=== PATIENT | female | born 1940 | race Caucasian/White ===

== ENCOUNTER 2016-07-17 14:00 | Outpatient (RCR) | payer MEDICARE, BC | END 2016-08-08 12:30 | disposition home or self-care (01) | LOC: PT 14:00 | DX: R27.0 Ataxia, unspecified (principal); R53.1 Weakness ==

== ENCOUNTER → 2016-12-11 | Outpatient (CLI) | payer MEDICARE, BC | LOC: LAB 16:05 | DX: I10 Essential (primary) hypertension (principal) ==

== ENCOUNTER → 2016-12-12 | Outpatient (CLI) | payer MEDICARE, BC | LOC: RAD 07:52 | DX: R10.31 Right lower quadrant pain (principal) ==

== ENCOUNTER 2017-01-25 13:30 | Outpatient (RCR) | payer MEDICARE, BC | END 2017-01-25 14:00 | disposition home or self-care (01) | LOC: PT 13:30 | DX: M77.12 Lateral epicondylitis, left elbow (principal) ==

== ENCOUNTER → 2017-02-06 | Outpatient (CLI) | payer MEDICARE, BC | LOC: LAB 10:20 | DX: M25.522 Pain in left elbow (principal); M19.022 Primary osteoarthritis, left elbow ==

== ENCOUNTER 2017-05-17 14:30 | Outpatient (RCR) | payer MEDICARE, BC | END 2017-05-17 15:00 | disposition home or self-care (01) | LOC: PT 14:30 | DX: M77.12 Lateral epicondylitis, left elbow (principal) | CPT/HCPCS: G8985-GP ==

== ENCOUNTER → 2017-05-27 | Outpatient (CLI) | payer MEDICARE, BC ==
[2017-05-27 08:56] LABS: EOS # 0.1 (0.04-0.40); EOS % 1.1 % (1.0-5.0); HEMATOCRIT 40.1 % (37.0-47.0); HEMOGLOBIN 12.9 g/dL (12.5-16.0); LYMPH# 2.2 (1.50-4.00); MEAN CELL VOLUME 92 fl (78-100); MEAN CORPUSCULAR HEMOGLOBIN 30 pg (27-31); MEAN CORPUSCULAR HGB CONC 32 g/dL (33-37); MEAN PLATELET VOLUME 9.4 fl (7.4-10.4); MONO # 0.6 (0.20-0.80); NEU # 4.1 (1.40-6.50); PLATELET COUNT 219 K/mm3 (130-400); RED BLOOD COUNT 4.38 M/mm3 (4.10-5.30); RED CELL DISTRIBUTION WIDTH 13.9 % (11.5-14.5); WHITE BLOOD COUNT 7.1 K/mm3 (4.8-10.8)
[2017-05-27 09:18] LABS: ALBUMIN 3.8 g/dL (3.5-5.0); BUN/CREATININE RATIO 21.1 (6.0-26.0); CALCIUM 10.3 mg/dL (8.4-10.2); POTASSIUM 4.9 mmol/L (3.6-5.0); TOTAL BILIRUBIN 0.5 mg/dL (0.2-1.3); TOTAL PROTEIN 6.9 g/dL (6.3-8.2)
[2017-05-27 09:58] LABS: ERYTHROCYTE SEDIMENTATION RATE 28 mm/hr (0-30)
[2017-05-27 22:20] LABS: C-REACTIVE PROTEIN XXX
== END ==
LOC: LAB 08:43
PROVIDERS: Internal Medicine
DX: I10 Essential (primary) hypertension (principal); M85.80 Other specified disorders of bone density and structure, unspecified site; R42 Dizziness and giddiness; R20.2 Paresthesia of skin; E78.2 Mixed hyperlipidemia; M17.9 Osteoarthritis of knee, unspecified

== ENCOUNTER → 2017-06-10 | Outpatient (CLI) | payer MEDICARE, BC | LOC: RAD 11:24 | DX: M25.552 Pain in left hip (principal) ==

== ENCOUNTER → 2017-08-13 | Outpatient (CLI) | payer MEDICARE, BC | LOC: RAD 14:58 | DX: J01.01 Acute recurrent maxillary sinusitis (principal); J20.9 Acute bronchitis, unspecified ==

== ENCOUNTER → 2017-09-24 | Outpatient (CLI) | payer MEDICARE, BC | LOC: LAB 15:35 | PROVIDERS: Internal Medicine | DX: I10 Essential (primary) hypertension (principal); K90.9 Intestinal malabsorption, unspecified; R74.8 Abnormal levels of other serum enzymes ==

== ENCOUNTER → 2017-10-23 | Outpatient (CLI) | payer MEDICARE, BC ==
[2017-10-23 11:30] LABS: ALBUMIN 4.1 g/dL (3.5-5.0); DIRECT BILIRUBIN 0.2 mg/dL (0.0-0.4); TOTAL BILIRUBIN 0.4 mg/dL (0.2-1.3); TOTAL PROTEIN 7.4 g/dL (6.3-8.2)
== END ==
LOC: LAB 10:56
PROVIDERS: Internal Medicine
DX: C50.112 Malignant neoplasm of central portion of left female breast (principal); R74.8 Abnormal levels of other serum enzymes; Z88.6 Allergy status to analgesic agent; Z88.1 Allergy status to other antibiotic agents; Z88.2 Allergy status to sulfonamides; Z88.8 Allergy status to other drugs, medicaments and biological substances

== ENCOUNTER → 2017-11-22 | Outpatient (CLI) | payer MEDICARE, BC ==
[2017-11-22 11:56] LABS: EOS # 0.2 (0.04-0.40); EOS % 1.6 % (1.0-5.0); HEMATOCRIT 42.1 % (37.0-47.0); HEMOGLOBIN 13.6 g/dL (12.5-16.0); LYMPH# 1.8 (1.50-4.00); MEAN CELL VOLUME 91 fl (78-100); MEAN CORPUSCULAR HEMOGLOBIN 29 pg (27-31); MEAN CORPUSCULAR HGB CONC 32 g/dL (33-37); MEAN PLATELET VOLUME 9.6 fl (7.4-10.4); MONO # 0.9 (0.20-0.80); NEU # 6.6 (1.40-6.50); PLATELET COUNT 200 K/mm3 (130-400); RED BLOOD COUNT 4.63 M/mm3 (4.10-5.30); RED CELL DISTRIBUTION WIDTH 14.3 % (11.5-14.5); WHITE BLOOD COUNT 9.5 K/mm3 (4.8-10.8)
[2017-11-22 12:05] LABS: ALBUMIN 4.3 g/dL (3.5-5.0); POTASSIUM 4.8 mmol/L (3.6-5.0); TOTAL BILIRUBIN 0.4 mg/dL (0.2-1.3); TOTAL PROTEIN 7.9 g/dL (6.3-8.2)
[2017-11-22 12:58] LABS: ERYTHROCYTE SEDIMENTATION RATE 32 mm/hr (0-30)
== END ==
LOC: LAB 11:37
PROVIDERS: Internal Medicine
DX: K44.9 Diaphragmatic hernia without obstruction or gangrene (principal); I10 Essential (primary) hypertension; E78.00 Pure hypercholesterolemia, unspecified; M85.80 Other specified disorders of bone density and structure, unspecified site
CPT/HCPCS: Q9967

== ENCOUNTER → 2017-12-17 | Outpatient (CLI) | payer MEDICARE, BC ==
[2017-12-17 16:25] LABS: ALBUMIN 3.7 g/dL (3.5-5.0); DIRECT BILIRUBIN 0.1 mg/dL (0.0-0.4); TOTAL BILIRUBIN 0.2 mg/dL (0.2-1.3); TOTAL PROTEIN 6.8 g/dL (6.3-8.2)
== END ==
LOC: LAB 15:46
PROVIDERS: Internal Medicine
DX: R74.8 Abnormal levels of other serum enzymes (principal)

== ENCOUNTER 2018-02-17 13:00 | Outpatient (RCR) | payer MEDICARE, BC | END 2018-03-25 | disposition home or self-care (01) | LOC: PT | DX: S39.012D Strain of muscle, fascia and tendon of lower back, subsequent encounter (principal); M54.6 Pain in thoracic spine; R07.89 Other chest pain; M25.552 Pain in left hip; M25.551 Pain in right hip | CPT/HCPCS: G8978-GP; G8979-GP ==

== ENCOUNTER → 2018-03-11 | Outpatient (CLI) | payer MEDICARE, BC ==
[2018-03-11 10:05] LABS: URINE WBC 0 /hpf (0-3)
[2018-03-11 10:22] LABS: URINE APPEARANCE CLEAR; URINE BILIRUBIN NEGATIVE (NEGATIVE); URINE BLOOD NEGATIVE (NEGATIVE); URINE COLOR YELLOW; URINE GLUCOSE NEGATIVE (NEGATIVE); URINE KETONE NEGATIVE (NEGATIVE); URINE LEUKOCYTE ESTERASE NEGATIVE (NEGATIVE); URINE MUCUS PRESENT (NOT PRESENT); URINE NITRATE NEGATIVE (NEGATIVE); URINE PROTEIN(semi-quant) TRACE mg/dL (NEGATIVE); URINE UROBILINOGEN NORMAL (NORMAL)
== END ==
LOC: LAB 09:54
PROVIDERS: Physician Assistant
DX: N39.0 Urinary tract infection, site not specified (principal); R30.0 Dysuria; R10.2 Pelvic and perineal pain

== ENCOUNTER → 2018-06-10 | Outpatient (CLI) | payer MEDICARE, BC ==
[2018-06-10 11:18] LABS: EOS # 0.1 (0.04-0.40); EOS % 0.7 % (1.0-5.0); HEMATOCRIT 40.6 % (37.0-47.0); HEMOGLOBIN 13.2 g/dL (12.5-16.0); LYMPH# 1.9 (1.50-4.00); MEAN CELL VOLUME 92 fl (78-100); MEAN CORPUSCULAR HEMOGLOBIN 30 pg (27-31); MEAN CORPUSCULAR HGB CONC 33 g/dL (33-37); MEAN PLATELET VOLUME 9.5 fl (7.4-10.4); MONO # 0.6 (0.20-0.80); NEU # 4.3 (1.40-6.50); PLATELET COUNT 211 K/mm3 (130-400); RED BLOOD COUNT 4.42 M/mm3 (4.10-5.30); RED CELL DISTRIBUTION WIDTH 13.5 % (11.5-14.5)
[2018-06-10 11:57] LABS: ALBUMIN 4.2 g/dL (3.5-5.0); CALCIUM 10.7 mg/dL (8.4-10.2); POTASSIUM 5.2 mmol/L (3.6-5.0); TOTAL BILIRUBIN 0.5 mg/dL (0.2-1.3); TOTAL PROTEIN 6.7 g/dL (6.3-8.2)
[2018-06-10 12:33] LABS: ERYTHROCYTE SEDIMENTATION RATE 10 mm/hr (0-30)
[2018-06-10 20:52] LABS: C-REACTIVE PROTEIN XXX
== END ==
LOC: LAB 10:57
PROVIDERS: Internal Medicine
DX: I10 Essential (primary) hypertension (principal); K90.9 Intestinal malabsorption, unspecified; E78.00 Pure hypercholesterolemia, unspecified; M85.80 Other specified disorders of bone density and structure, unspecified site; M19.90 Unspecified osteoarthritis, unspecified site

== ENCOUNTER → 2018-06-17 | Outpatient (CLI) | payer MEDICARE, BC ==
[2018-06-17 13:39] LABS: EOS # 0.1 (0.04-0.40); EOS % 0.6 % (1.0-5.0); HEMATOCRIT 41.6 % (37.0-47.0); HEMOGLOBIN 13.7 g/dL (12.5-16.0); LYMPH# 2.4 (1.50-4.00); MEAN CELL VOLUME 91 fl (78-100); MEAN CORPUSCULAR HEMOGLOBIN 30 pg (27-31); MEAN CORPUSCULAR HGB CONC 33 g/dL (33-37); MEAN PLATELET VOLUME 10.3 fl (7.4-10.4); MONO # 0.8 (0.20-0.80); PLATELET COUNT 230 K/mm3 (130-400); RED BLOOD COUNT 4.57 M/mm3 (4.10-5.30); RED CELL DISTRIBUTION WIDTH 13.4 % (11.5-14.5); WHITE BLOOD COUNT 8.3 K/mm3 (4.8-10.8)
[2018-06-17 14:10] LABS: ERYTHROCYTE SEDIMENTATION RATE 18 mm/hr (0-30)
== END ==
LOC: RAD 12:00
PROVIDERS: Nurse Practitioner Family
DX: I63.9 Cerebral infarction, unspecified (principal)

== ENCOUNTER → 2018-06-24 | Outpatient (CLI) | payer MEDICARE, BC | LOC: CARDREHAB 15:35 | DX: G47.33 Obstructive sleep apnea (adult) (pediatric) (principal); R06.83 Snoring; G47.34 Idiopathic sleep related nonobstructive alveolar hypoventilation; E66.9 Obesity, unspecified; Z68.38 Body mass index [BMI] 38.0-38.9, adult; G47.10 Hypersomnia, unspecified; G47.8 Other sleep disorders; R51 Headache | CPT/HCPCS: G0399 ==

== ENCOUNTER → 2019-02-09 | Outpatient (CLI) | payer MEDICARE, BC | LOC: RAD 14:05 | DX: M51.36 Other intervertebral disc degeneration, lumbar region (principal) ==

== ENCOUNTER → 2019-03-11 | Outpatient (CLI) | payer MEDICARE, BC | LOC: PT 09:56 | DX: M17.11 Unilateral primary osteoarthritis, right knee (principal); Z96.651 Presence of right artificial knee joint ==

== ENCOUNTER → 2019-05-11 | Outpatient (CLI) | payer MEDICARE, BC ==
[2019-04-06 11:30] VITALS: BP 146/70
[~2019-05-11] MED LIST: ASPIRIN E.C. 8181 MG; BYSTOLIC5 MG PO; CALCIUM CITRATE1 TA4 PO; CHOLESTYRAMINE P4 GM PO; CLARITIN 1010 MG/TAB PO; COLESTID5 GM/PACKE PO; FISH OIL1 IU PO; MULTIPLE VITAMI1 TA1 PO; PANTOPRAZOLE SO40 MG PO; VITAMIN D32000 UNI1 PO
== END ==
LOC: RAD 11:00
DX: I65.23 Occlusion and stenosis of bilateral carotid arteries (principal)

== ENCOUNTER → 2019-05-27 | Outpatient (CLI) | payer MEDICARE, BC ==
[2019-04-06 11:30] VITALS: BP 146/70
[2019-05-27 11:14] LABS: EOS # 0.1 (0.04-0.40); EOS % 1.7 % (1.0-5.0); HEMATOCRIT 40.3 % (37.0-47.0); HEMOGLOBIN 12.4 g/dL (12.5-16.0); LYMPH# 1.2 (1.50-4.00); MEAN CELL VOLUME 95 fl (78-100); MEAN CORPUSCULAR HEMOGLOBIN 29 pg (27-31); MEAN CORPUSCULAR HGB CONC 31 g/dL (33-37); MONO # 0.7 (0.20-0.80); NEU # 4.1 (1.40-6.50); PLATELET COUNT 240 K/mm3 (130-400); RED BLOOD COUNT 4.26 M/mm3 (4.10-5.30); RED CELL DISTRIBUTION WIDTH 14.1 % (11.5-14.5)
[2019-05-27 11:25] LABS: ALBUMIN 3.9 g/dL (3.4-4.8)
[2019-05-27 11:26] LABS: CALCIUM 10.1 mg/dL (8.3-10.5)
[2019-05-27 11:30] LABS: TOTAL BILIRUBIN 0.3 mg/dL (0.2-1.2)
[2019-05-27 11:35] LABS: MAGNESIUM 2.21 mg/dL (1.60-2.60)
== END ==
LOC: LAB 11:00
PROVIDERS: Internal Medicine
DX: Z01.818 Encounter for other preprocedural examination (principal); I10 Essential (primary) hypertension; M85.80 Other specified disorders of bone density and structure, unspecified site; M17.0 Bilateral primary osteoarthritis of knee; E78.00 Pure hypercholesterolemia, unspecified

== ENCOUNTER → 2019-06-26 | Outpatient (CLI) | payer MEDICARE, BC ==
[2019-04-06 11:30] VITALS: BP 146/70
[2019-06-26 11:27] LABS: ALBUMIN 4.2 g/dL (3.4-4.8); POTASSIUM 4.9 mmol/L (3.5-5.1)
[2019-06-26 11:28] LABS: CALCIUM 10.3 mg/dL (8.3-10.5)
[2019-06-26 11:30] LABS: TOTAL PROTEIN 7.2 g/dL (6.2-8.1)
[2019-06-26 11:31] LABS: TOTAL BILIRUBIN 0.3 mg/dL (0.2-1.2)
== END ==
LOC: LAB 11:04
PROVIDERS: Internal Medicine
DX: I10 Essential (primary) hypertension (principal); E78.00 Pure hypercholesterolemia, unspecified; M85.80 Other specified disorders of bone density and structure, unspecified site

== ENCOUNTER 2019-07-01 10:00 | Outpatient (RCR) | payer MEDICARE, BC ==
[2019-04-06 11:30] VITALS: BP 146/70
== END 2019-07-01 10:45 | disposition still patient (30) ==
LOC: PT 10:00
DX: M17.11 Unilateral primary osteoarthritis, right knee (principal); Z96.651 Presence of right artificial knee joint

== ENCOUNTER → 2019-10-21 | Outpatient (CLI) | payer MEDICARE, BC ==
[2019-04-06 11:30] VITALS: BP 146/70
[2019-10-21 11:13] LABS: URINE APPEARANCE CLEAR; URINE BILIRUBIN NEGATIVE (NEGATIVE); URINE BLOOD TRACE (NEGATIVE); URINE COLOR YELLOW; URINE GLUCOSE NEGATIVE (NEGATIVE); URINE KETONE NEGATIVE (NEGATIVE); URINE LEUKOCYTE ESTERASE TRACE (NEGATIVE); URINE NITRATE NEGATIVE (NEGATIVE); URINE PROTEIN(semi-quant) TRACE mg/dL (NEGATIVE); URINE UROBILINOGEN NORMAL (NORMAL)
[2019-10-21 11:14] LABS: URINE MUCUS PRESENT (NOT PRESENT); URINE WBC 0-1 /hpf (0-3)
== END ==
LOC: LAB 10:21
PROVIDERS: Internal Medicine
DX: N39.0 Urinary tract infection, site not specified (principal); R10.2 Pelvic and perineal pain

== ENCOUNTER → 2019-11-27 | Outpatient (CLI) | payer MEDICARE, BC ==
[2019-04-06 11:30] VITALS: BP 146/70
[2019-11-27 10:58] LABS: EOS # 0.1 (0.04-0.40); EOS % 1.6 % (1.0-5.0); HEMATOCRIT 41.1 % (37.0-47.0); HEMOGLOBIN 12.4 g/dL (12.5-16.0); LYMPH# 1.9 (1.50-4.00); MEAN CELL VOLUME 91 fl (78-100); MEAN CORPUSCULAR HEMOGLOBIN 28 pg (27-31); MEAN CORPUSCULAR HGB CONC 30 g/dL (33-37); MEAN PLATELET VOLUME 9.6 fl (7.4-10.4); MONO # 0.7 (0.20-0.80); NEU # 4.2 (1.40-6.50); PLATELET COUNT 219 K/mm3 (130-400); RED BLOOD COUNT 4.51 M/mm3 (4.10-5.30); RED CELL DISTRIBUTION WIDTH 15.6 % (11.5-14.5); WHITE BLOOD COUNT 6.9 K/mm3 (4.8-10.8)
[2019-11-27 11:20] LABS: ALBUMIN 4.2 g/dL (3.4-4.8)
[2019-11-27 11:22] LABS: CALCIUM 9.5 mg/dL (8.3-10.5)
[2019-11-27 11:23] LABS: TOTAL PROTEIN 6.9 g/dL (6.2-8.1)
[2019-11-27 11:25] LABS: TOTAL BILIRUBIN 0.3 mg/dL (0.2-1.2)
[2019-11-27 12:25] LABS: ERYTHROCYTE SEDIMENTATION RATE 20 mm/hr (0-30)
[2019-11-27 12:27] LABS: URINE APPEARANCE CLEAR; URINE BILIRUBIN NEGATIVE (NEGATIVE); URINE BLOOD NEGATIVE (NEGATIVE); URINE COLOR YELLOW; URINE GLUCOSE NEGATIVE (NEGATIVE); URINE KETONE NEGATIVE (NEGATIVE); URINE LEUKOCYTE ESTERASE NEGATIVE (NEGATIVE); URINE NITRATE NEGATIVE (NEGATIVE); URINE PROTEIN(semi-quant) NEGATIVE (NEGATIVE); URINE UROBILINOGEN NORMAL (NORMAL); URINE WBC 0-1 /hpf (0-3)
== END ==
LOC: RAD 10:11
PROVIDERS: Internal Medicine
DX: Z13.6 Encounter for screening for cardiovascular disorders (principal); I48.0 Paroxysmal atrial fibrillation; I10 Essential (primary) hypertension; M17.0 Bilateral primary osteoarthritis of knee; R60.0 Localized edema; R31.9 Hematuria, unspecified

== ENCOUNTER → 2020-03-09 | Outpatient (CLI) | payer MEDICARE, BC ==
[2019-04-06 11:30] VITALS: BP 146/70
== END ==
LOC: LAB 08:53
DX: M85.80 Other specified disorders of bone density and structure, unspecified site (principal); E78.2 Mixed hyperlipidemia; R20.2 Paresthesia of skin

== ENCOUNTER 2020-05-26 13:37 | Outpatient (RCR) | payer MEDICARE, BC ==
[2019-04-06 11:30] VITALS: BP 146/70
== END 2020-05-26 14:00 | disposition home or self-care (01) ==
LOC: PT 13:37
DX: M25.512 Pain in left shoulder (principal)

== ENCOUNTER → 2020-06-03 | Outpatient (CLI) | payer MEDICARE, BC ==
[2019-04-06 11:30] VITALS: BP 146/70
[2020-06-03 11:52] LABS: EOS # 0.1 (0.04-0.40); EOS % 0.6 % (1.0-5.0); HEMATOCRIT 45.4 % (37.0-47.0); HEMOGLOBIN 14.5 g/dL (12.5-16.0); LYMPH# 1.9 (1.50-4.00); MEAN CELL VOLUME 90 fl (78-100); MEAN CORPUSCULAR HEMOGLOBIN 29 pg (27-31); MEAN CORPUSCULAR HGB CONC 32 g/dL (33-37); MEAN PLATELET VOLUME 9.1 fl (7.4-10.4); MONO # 0.7 (0.20-0.80); NEU # 5.8 (1.40-6.50); PLATELET COUNT 240 K/mm3 (130-400); RED BLOOD COUNT 5.06 M/mm3 (4.10-5.30); RED CELL DISTRIBUTION WIDTH 14.4 % (11.5-14.5); WHITE BLOOD COUNT 8.5 K/mm3 (4.8-10.8)
[2020-06-03 12:00] LABS: POTASSIUM 4.7 mmol/L (3.5-5.1); SODIUM 142 mmol/L (136-145)
[2020-06-03 12:01] LABS: ALBUMIN 4.3 g/dL (3.4-4.8); URINE APPEARANCE CLEAR; URINE BILIRUBIN NEGATIVE (NEGATIVE); URINE COLOR YELLOW; URINE GLUCOSE NEGATIVE (NEGATIVE); URINE KETONE NEGATIVE (NEGATIVE); URINE LEUKOCYTE ESTERASE NEGATIVE (NEGATIVE); URINE NITRATE NEGATIVE (NEGATIVE); URINE PROTEIN(semi-quant) TRACE mg/dL (NEGATIVE); URINE UROBILINOGEN NORMAL (NORMAL)
[2020-06-03 12:02] LABS: CALCIUM 9.9 mg/dL (8.3-10.5); URINE BLOOD NEGATIVE (NEGATIVE); URINE MUCUS PRESENT (NOT PRESENT)
[2020-06-03 12:03] LABS: GLUCOSE 99 mg/dL (65-105); TOTAL PROTEIN 7.8 g/dL (6.2-8.1)
[2020-06-03 12:04] LABS: CARBON DIOXIDE 27 mmol/L (23-31)
[2020-06-03 12:05] LABS: TOTAL BILIRUBIN 0.4 mg/dL (0.2-1.2)
[2020-06-03 12:09] LABS: AST-SGOT 18 U/L (5-34)
[2020-06-03 12:10] LABS: ALT/SGPT 34 U/L (0-55); MAGNESIUM 2.04 mg/dL (1.60-2.60)
== END ==
LOC: LAB 11:31
PROVIDERS: Internal Medicine
DX: E78.00 Pure hypercholesterolemia, unspecified (principal); I10 Essential (primary) hypertension; K90.9 Intestinal malabsorption, unspecified; I48.0 Paroxysmal atrial fibrillation

== ENCOUNTER 2020-11-20 23:59 | Emergency (ER) | payer MEDICARE, BC ==
[~2020-11-20 23:59] MED LIST changes: -ASPIRIN E.C. 8181 MG; +ASPIRIN E.C. 8181 MG PO; -VITAMIN D32000 UNI1 PO; +VITAMIN D3250 MC2 PO
[2020-11-21] MEDS ORDERED: PROBIOTIC1 EAC4 PO (00:52)
[2020-11-21] MEDS ORDERED: FEXOFENADINE H180 M1 PO (00:54)
[2020-11-21 00:55] LABS: EOS # 0.1 (0.04-0.40); EOS % 0.9 % (1.0-5.0); HEMOGLOBIN 13.3 g/dL (12.5-16.0); LYMPH# 2.8 (1.50-4.00); MEAN CELL VOLUME 89 fl (78-100); MEAN CORPUSCULAR HEMOGLOBIN 29 pg (27-31); MEAN CORPUSCULAR HGB CONC 32 g/dL (33-37); MEAN PLATELET VOLUME 10.2 fl (7.4-10.4); NEU # 8.7 (1.40-6.50); PLATELET COUNT 202 K/mm3 (130-400); RED BLOOD COUNT 4.61 M/mm3 (4.10-5.30); RED CELL DISTRIBUTION WIDTH 13.7 % (11.5-14.5); WHITE BLOOD COUNT 12.7 K/mm3 (4.8-10.8)
[2020-11-21] MEDS ORDERED: VITAMIN C500 M6 PO (00:55)
[2020-11-21] MEDS ORDERED: FLUTICASON0.05 MG/Ac NS (00:56)
[2020-11-21 01:03] LABS: ALBUMIN 4.1 g/dL (3.4-4.8)
[2020-11-21 01:04] LABS: POTASSIUM 4.3 mmol/L (3.5-5.1)
[2020-11-21 01:05] LABS: CALCIUM 9.3 mg/dL (8.3-10.5)
[2020-11-21 01:06] LABS: TOTAL PROTEIN 6.6 g/dL (6.2-8.1)
[2020-11-21 01:08] LABS: TOTAL BILIRUBIN 0.5 mg/dL (0.2-1.2)
[2020-11-21 01:44] LABS: URINE APPEARANCE CLEAR; URINE COLOR YELLOW
[2020-11-21 01:47] LABS: URINE BILIRUBIN NEGATIVE (NEGATIVE); URINE GLUCOSE NEGATIVE (NEGATIVE); URINE KETONE NEGATIVE (NEGATIVE); URINE NITRATE NEGATIVE (NEGATIVE); URINE PROTEIN(semi-quant) TRACE mg/dL (NEGATIVE); URINE UROBILINOGEN NORMAL (NORMAL)
[2020-11-21 01:48] LABS: URINE BLOOD TRACE (NEGATIVE); URINE LEUKOCYTE ESTERASE 1+ (NEGATIVE)
[2020-11-21 02:10] LABS: LIPASE 16301 U/L (8-78)
[2020-11-21 03:12] VITALS: BP 190/84
== END 2020-11-21 03:46 | disposition short-term general hospital (02) ==
LOC: ED 23:59
PROVIDERS: Family Medicine
DX: K85.90 Acute pancreatitis without necrosis or infection, unspecified (principal); I10 Essential (primary) hypertension; I48.91 Unspecified atrial fibrillation; K21.9 Gastro-esophageal reflux disease without esophagitis; K58.9 Irritable bowel syndrome, unspecified; Z90.49 Acquired absence of other specified parts of digestive tract; Z98.890 Other specified postprocedural states; Z79.82 Long term (current) use of aspirin; Z79.899 Other long term (current) drug therapy; Z79.51 Long term (current) use of inhaled steroids
CPT/HCPCS: C9113; J3010; J7030; Q9967

== ENCOUNTER → 2020-12-01 | Outpatient (CLI) | payer MEDICARE, BC ==
[2020-11-21 03:12] VITALS: BP 190/84
[~2020-12-01] MED LIST changes: +FEXOFENADINE H180 M1 PO; +FLUTICASON0.05 MG/Ac NS; +PROBIOTIC1 EAC4 PO; +VITAMIN C500 M6 PO
[2020-12-01 10:32] LABS: ALBUMIN 3.2 g/dL (3.4-4.8)
[2020-12-01 10:33] LABS: POTASSIUM 4.2 mmol/L (3.5-5.1)
[2020-12-01 10:34] LABS: CALCIUM 9.5 mg/dL (8.3-10.5)
[2020-12-01 10:35] LABS: TOTAL PROTEIN 6.5 g/dL (6.2-8.1)
[2020-12-01 10:37] LABS: BASO # 0.03 (0.02-0.10); EOS # 0.13 (0.04-0.40); EOS % 0.9 % (1.0-5.0); HEMATOCRIT 37.7 % (37.0-47.0); HEMOGLOBIN 11.9 g/dL (12.5-16.0); LYMPH# 2.43 (1.50-4.00); MEAN CELL VOLUME 90 fl (78-100); MEAN CORPUSCULAR HEMOGLOBIN 28 pg (27-31); MEAN CORPUSCULAR HGB CONC 32 g/dL (33-37); MEAN PLATELET VOLUME 9.3 fl (7.4-10.4); MONO # 0.97 (0.20-0.80); PLATELET COUNT 331 K/mm3 (130-400); RED BLOOD COUNT 4.21 M/mm3 (4.10-5.30); RED CELL DISTRIBUTION WIDTH 14.4 % (11.5-14.5); TOTAL BILIRUBIN 0.4 mg/dL (0.2-1.2)
== END ==
LOC: LAB 09:56
PROVIDERS: Physician Assistant
DX: D72.829 Elevated white blood cell count, unspecified (principal); R74.8 Abnormal levels of other serum enzymes

== ENCOUNTER → 2020-12-09 | Outpatient (CLI) | payer MEDICARE, BC ==
[2020-11-21 03:12] VITALS: BP 190/84
[2020-12-09 12:34] LABS: BASO # 0.04 (0.02-0.10); EOS # 0.07 (0.04-0.40); EOS % 0.9 % (1.0-5.0); HEMOGLOBIN 13.1 g/dL (12.5-16.0); LYMPH# 2.22 (1.50-4.00); MEAN CELL VOLUME 90 fl (78-100); MEAN CORPUSCULAR HEMOGLOBIN 28 pg (27-31); MEAN CORPUSCULAR HGB CONC 31 g/dL (33-37); MEAN PLATELET VOLUME 9.1 fl (7.4-10.4); MONO # 0.61 (0.20-0.80); NEU # 4.63 (1.40-6.50); PLATELET COUNT 423 K/mm3 (130-400); RED BLOOD COUNT 4.65 M/mm3 (4.10-5.30); RED CELL DISTRIBUTION WIDTH 14.1 % (11.5-14.5); WHITE BLOOD COUNT 7.6 K/mm3 (4.8-10.8)
[2020-12-09 12:36] LABS: POTASSIUM 4.8 mmol/L (3.5-5.1)
[2020-12-09 12:38] LABS: TOTAL PROTEIN 7.3 g/dL (6.2-8.1)
[2020-12-09 12:40] LABS: TOTAL BILIRUBIN 0.3 mg/dL (0.2-1.2)
[2020-12-09 13:42] LABS: ERYTHROCYTE SEDIMENTATION RATE 57 mm/hr (0-30)
== END ==
LOC: LAB 12:10
PROVIDERS: Internal Medicine
DX: K85.90 Acute pancreatitis without necrosis or infection, unspecified (principal)

== ENCOUNTER 2021-02-08 10:01 | Outpatient (RCR) | payer MEDICARE, BC | END 2021-05-09 | LOC: PT | DX: M76.31 Iliotibial band syndrome, right leg (principal) ==

== ENCOUNTER → 2021-06-05 | Outpatient (CLI) | payer MEDICARE, BC ==
[2021-06-05 08:11] LABS: BASO # 0.01 K/mm3 (0.02-0.10); EOS # 0.08 K/mm3 (0.04-0.40); EOS % 1.4 % (1.0-5.0); HEMATOCRIT 42.2 % (37.0-47.0); HEMOGLOBIN 13.4 g/dL (12.5-16.0); LYMPH# 1.97 K/mm3 (1.50-4.00); MEAN CELL VOLUME 92 fl (78-100); MEAN CORPUSCULAR HEMOGLOBIN 29 pg (27-31); MEAN CORPUSCULAR HGB CONC 32 g/dL (33-37); MEAN PLATELET VOLUME 9.6 fl (7.4-10.4); MONO # 0.49 K/mm3 (0.20-0.80); NEU # 2.97 K/mm3 (1.40-6.50); PLATELET COUNT 194 K/mm3 (130-400); RED BLOOD COUNT 4.59 M/mm3 (4.10-5.30); RED CELL DISTRIBUTION WIDTH 15.1 % (11.5-14.5); WHITE BLOOD COUNT 5.5 K/mm3 (4.8-10.8)
[2021-06-05 08:19] LABS: POTASSIUM 4.4 mmol/L (3.5-5.1); SODIUM 142 mmol/L (136-145)
[2021-06-05 08:20] LABS: ALBUMIN 3.9 g/dL (3.4-4.8); CALCIUM 9.8 mg/dL (8.3-10.5)
[2021-06-05 08:22] LABS: GLUCOSE 92 mg/dL (65-105); TOTAL PROTEIN 6.6 g/dL (6.2-8.1)
[2021-06-05 08:23] LABS: CARBON DIOXIDE 26 mmol/L (23-31)
[2021-06-05 08:24] LABS: TOTAL BILIRUBIN 0.4 mg/dL (0.2-1.2)
[2021-06-05 08:27] LABS: AST-SGOT 15 U/L (5-34)
[2021-06-05 08:29] LABS: ALT/SGPT 22 U/L (0-55); MAGNESIUM 1.95 mg/dL (1.60-2.60)
[2021-06-05 09:10] LABS: ERYTHROCYTE SEDIMENTATION RATE 15 mm/hr (0-30)
== END ==
LOC: LAB 07:52
PROVIDERS: Internal Medicine
DX: I48.0 Paroxysmal atrial fibrillation (principal); K90.9 Intestinal malabsorption, unspecified; E88.81 Metabolic syndrome and other insulin resistance; I10 Essential (primary) hypertension; E78.00 Pure hypercholesterolemia, unspecified; K85.90 Acute pancreatitis without necrosis or infection, unspecified

== ENCOUNTER → 2021-06-06 | Outpatient (CLI) | payer MEDICARE, BC ==
[2021-06-06 12:34] LABS: URINE APPEARANCE CLEAR; URINE BILIRUBIN NEGATIVE (NEGATIVE); URINE BLOOD NEGATIVE (NEGATIVE); URINE COLOR YELLOW; URINE GLUCOSE NEGATIVE (NEGATIVE); URINE KETONE NEGATIVE (NEGATIVE); URINE LEUKOCYTE ESTERASE NEGATIVE (NEGATIVE); URINE NITRATE NEGATIVE (NEGATIVE); URINE PROTEIN(semi-quant) NEGATIVE (NEGATIVE); URINE UROBILINOGEN NORMAL (NORMAL); URINE WBC 0-1 /hpf (0-3)
== END ==
LOC: LAB 11:40
PROVIDERS: Internal Medicine
DX: I10 Essential (primary) hypertension (principal)

== ENCOUNTER 2021-12-04 10:48 | Outpatient (RCR) | payer MEDICARE, BC | END 2021-12-19 | disposition home or self-care (01) | LOC: PT | DX: M70.62 Trochanteric bursitis, left hip (principal) ==

== ENCOUNTER 2021-12-20 11:57 | Outpatient (RCR) | payer MEDICARE, BC | END 2022-01-18 | disposition home or self-care (01) | LOC: PT | DX: M70.62 Trochanteric bursitis, left hip (principal) ==

== ENCOUNTER 2022-01-19 09:58 | Outpatient (RCR) | payer MEDICARE, BC | END 2022-02-18 | disposition home or self-care (01) | LOC: PT | DX: M70.62 Trochanteric bursitis, left hip (principal) ==

== ENCOUNTER 2022-05-22 08:00 | Outpatient (RCR) | payer MEDICARE, BC | END 2022-06-20 | disposition home or self-care (01) | LOC: PT | DX: M70.62 Trochanteric bursitis, left hip (principal) ==

== ENCOUNTER → 2022-05-31 | Outpatient (CLI) | payer MEDICARE, BC | LOC: MAMMO 05-28 15:00 | DX: M81.0 Age-related osteoporosis without current pathological fracture (principal); M85.89 Other specified disorders of bone density and structure, multiple sites ==

== ENCOUNTER → 2022-06-06 | Outpatient (CLI) | payer MEDICARE, BC ==
[2022-06-06 08:20] LABS: BASO # 0.01 K/mm3 (0.02-0.10); EOS # 0.02 K/mm3 (0.04-0.40); EOS % 0.3 % (1.0-5.0); HEMATOCRIT 42.3 % (37.0-47.0); HEMOGLOBIN 13.7 g/dL (12.5-16.0); LYMPH# 1.85 K/mm3 (1.50-4.00); MEAN CELL VOLUME 90 fl (78-100); MEAN CORPUSCULAR HEMOGLOBIN 29 pg (27-31); MEAN CORPUSCULAR HGB CONC 32 g/dL (33-37); MEAN PLATELET VOLUME 9.6 fl (7.4-10.4); MONO # 0.49 K/mm3 (0.20-0.80); NEU # 4.64 K/mm3 (1.40-6.50); PLATELET COUNT 200 K/mm3 (130-400); RED BLOOD COUNT 4.69 M/mm3 (4.10-5.30); RED CELL DISTRIBUTION WIDTH 12.8 % (11.5-14.5)
[2022-06-06 08:23] LABS: ALBUMIN 4.4 g/dL (3.4-4.8); POTASSIUM 4.8 mmol/L (3.5-5.1); SODIUM 142 mmol/L (136-145)
[2022-06-06 08:24] LABS: CALCIUM 10.3 mg/dL (8.3-10.5)
[2022-06-06 08:25] LABS: TOTAL PROTEIN 7.2 g/dL (6.2-8.1)
[2022-06-06 08:26] LABS: CARBON DIOXIDE 27 mmol/L (23-31); GLUCOSE 96 mg/dL (65-105)
[2022-06-06 08:27] LABS: TOTAL BILIRUBIN 0.5 mg/dL (0.2-1.2)
[2022-06-06 08:31] LABS: AST-SGOT 14 U/L (5-34)
[2022-06-06 08:32] LABS: ALT/SGPT 19 U/L (0-55); MAGNESIUM 2.12 mg/dL (1.60-2.60)
[2022-06-06 09:54] LABS: ERYTHROCYTE SEDIMENTATION RATE 20 mm/hr (0-30)
== END ==
LOC: LAB 07:53
PROVIDERS: Internal Medicine
DX: Z12.11 Encounter for screening for malignant neoplasm of colon (principal); K90.9 Intestinal malabsorption, unspecified; E78.00 Pure hypercholesterolemia, unspecified; I48.0 Paroxysmal atrial fibrillation; I10 Essential (primary) hypertension

== ENCOUNTER → 2022-06-07 | Outpatient (CLI) | payer MEDICARE, BC ==
[2022-06-07 11:40] LABS: URINE APPEARANCE CLEAR; URINE BILIRUBIN NEGATIVE (NEGATIVE); URINE BLOOD TRACE (NEGATIVE); URINE COLOR YELLOW; URINE GLUCOSE NEGATIVE (NEGATIVE); URINE KETONE NEGATIVE (NEGATIVE); URINE LEUKOCYTE ESTERASE NEGATIVE (NEGATIVE); URINE NITRATE NEGATIVE (NEGATIVE); URINE PROTEIN(semi-quant) NEGATIVE (NEGATIVE); URINE UROBILINOGEN NORMAL (NORMAL); URINE WBC 0-1 /hpf (0-3)
== END ==
LOC: LAB 11:08
PROVIDERS: Internal Medicine
DX: N39.0 Urinary tract infection, site not specified (principal)

== ENCOUNTER → 2022-10-17 | Outpatient (CLI) | payer MEDICARE, BC | LOC: RAD 12:46 | DX: M77.32 Calcaneal spur, left foot (principal) ==

== ENCOUNTER → 2023-08-12 | Outpatient (CLI) | payer MEDICARE, BC ==
[2023-08-12 14:49] LABS: BASO # 0.01 K/mm3 (0.02-0.10); EOS # 0.04 K/mm3 (0.04-0.40); EOS % 0.5 % (1.0-5.0); HEMATOCRIT 43.1 % (37.0-47.0); HEMOGLOBIN 13.6 g/dL (12.5-16.0); MEAN CELL VOLUME 92 fl (78-100); MEAN CORPUSCULAR HEMOGLOBIN 29 pg (27-31); MEAN CORPUSCULAR HGB CONC 32 g/dL (33-37); MEAN PLATELET VOLUME 9.1 fl (7.4-10.4); MONO # 0.53 K/mm3 (0.20-0.80); PLATELET COUNT 208 K/mm3 (130-400); RED BLOOD COUNT 4.69 M/mm3 (4.10-5.30); RED CELL DISTRIBUTION WIDTH 13.5 % (11.5-14.5); WHITE BLOOD COUNT 7.3 K/mm3 (4.8-10.8)
[2023-08-12 14:55] LABS: URINE APPEARANCE CLEAR (CLEAR); URINE COLOR YELLOW (YELLOW)
[2023-08-12 14:56] LABS: URINE BILIRUBIN NEGATIVE (NEGATIVE); URINE BLOOD NEGATIVE (NEGATIVE); URINE GLUCOSE NEGATIVE (NEGATIVE); URINE KETONE NEGATIVE (NEGATIVE); URINE LEUKOCYTE ESTERASE NEGATIVE (NEGATIVE); URINE NITRATE NEGATIVE (NEGATIVE); URINE PROTEIN(semi-quant) NEGATIVE (NEGATIVE)
[2023-08-12 14:58] LABS: ALBUMIN 4.5 g/dL (3.4-4.8)
[2023-08-12 14:59] LABS: CALCIUM 10.3 mg/dL (8.3-10.5)
[2023-08-12 15:00] LABS: TOTAL PROTEIN 7.1 g/dL (6.2-8.1)
[2023-08-12 15:02] LABS: TOTAL BILIRUBIN 0.4 mg/dL (0.2-1.2)
[2023-08-12 15:07] LABS: MAGNESIUM 2.12 mg/dL (1.60-2.60)
== END ==
LOC: LAB 14:33
PROVIDERS: Internal Medicine
DX: K90.9 Intestinal malabsorption, unspecified (principal); E78.00 Pure hypercholesterolemia, unspecified; I10 Essential (primary) hypertension; R73.03 Prediabetes

== ENCOUNTER 2023-11-27 08:00 | Outpatient (RCR) | payer MEDICARE, BC | END 2023-12-20 23:59 | disposition still patient (30) | LOC: PT 08:00 | DX: M25.511 Pain in right shoulder (principal) ==

== ENCOUNTER 2023-12-21 08:00 | Outpatient (RCR) | payer MEDICARE, BC | END 2024-01-19 | disposition home or self-care (01) | LOC: PT | DX: M25.511 Pain in right shoulder (principal) ==

== ENCOUNTER → 2023-12-21 | Outpatient (CLI) | payer MEDICARE, BC | LOC: RAD 10:31 | DX: M25.472 Effusion, left ankle (principal) ==

== ENCOUNTER → 2024-04-24 | Outpatient (CLI) | payer MEDICARE, BC | LOC: RAD 10:01 | DX: I65.23 Occlusion and stenosis of bilateral carotid arteries (principal) ==

== ENCOUNTER → 2024-05-04 | Outpatient (CLI) | payer MEDICARE, BC ==
[2024-05-04 10:26] LABS: BASO # 0.01 K/mm3 (0.02-0.10); EOS # 0.07 K/mm3 (0.04-0.40); EOS % 0.7 % (1.0-5.0); HEMATOCRIT 41.9 % (37.0-47.0); LYMPH# 2.68 K/mm3 (1.50-4.00); MEAN CELL VOLUME 95 fl (78-100); MEAN CORPUSCULAR HEMOGLOBIN 30 pg (27-31); MEAN CORPUSCULAR HGB CONC 31 g/dL (33-37); MEAN PLATELET VOLUME 9.3 fl (7.4-10.4); MONO # 0.87 K/mm3 (0.20-0.80); NEU # 7.06 K/mm3 (1.40-6.50); PLATELET COUNT 207 K/mm3 (130-400); RED BLOOD COUNT 4.41 M/mm3 (4.10-5.30); RED CELL DISTRIBUTION WIDTH 13.6 % (11.5-14.5); WHITE BLOOD COUNT 10.7 K/mm3 (4.8-10.8)
[2024-05-04 10:34] LABS: URINE APPEARANCE CLEAR (CLEAR); URINE BILIRUBIN NEGATIVE (NEGATIVE); URINE BLOOD NEGATIVE (NEGATIVE); URINE COLOR YELLOW (YELLOW); URINE GLUCOSE NEGATIVE (NEGATIVE); URINE KETONE NEGATIVE (NEGATIVE); URINE LEUKOCYTE ESTERASE NEGATIVE (NEGATIVE); URINE MUCUS PRESENT (NOT PRESENT); URINE NITRATE NEGATIVE (NEGATIVE); URINE PROTEIN(semi-quant) NEGATIVE (NEGATIVE)
[2024-05-04 10:35] LABS: CALCIUM 9.7 mg/dL (8.3-10.5)
[2024-05-04 10:37] LABS: TOTAL PROTEIN 6.5 g/dL (6.2-8.1)
[2024-05-04 10:39] LABS: TOTAL BILIRUBIN 0.3 mg/dL (0.2-1.2)
[2024-05-04 10:43] LABS: MAGNESIUM 2.08 mg/dL (1.60-2.60)
== END ==
LOC: LAB 10:03
PROVIDERS: Internal Medicine
DX: K90.9 Intestinal malabsorption, unspecified (principal); E78.00 Pure hypercholesterolemia, unspecified; I10 Essential (primary) hypertension; R73.03 Prediabetes; M81.0 Age-related osteoporosis without current pathological fracture

== ENCOUNTER → 2024-06-25 | Outpatient (CLI) | payer MEDICARE, BC | LOC: MAMMO 13:15 | DX: Z12.31 Encounter for screening mammogram for malignant neoplasm of breast (principal); N63.11 Unspecified lump in the right breast, upper outer quadrant ==

== ENCOUNTER → 2024-06-30 | Outpatient (CLI) | payer MEDICARE, BC | LOC: RAD 07:40 → MAMMO 07:40 → RAD 07:45 | DX: N60.01 Solitary cyst of right breast (principal); I65.23 Occlusion and stenosis of bilateral carotid arteries ==

== ENCOUNTER → 2024-08-17 | Outpatient (CLI) | payer MEDICARE, BC | LOC: RAD 13:23 → MAMMO 13:30 | DX: Z12.31 Encounter for screening mammogram for malignant neoplasm of breast (principal); M81.0 Age-related osteoporosis without current pathological fracture ==

== ENCOUNTER → 2024-08-28 | Outpatient (CLI) | payer MEDICARE, BC ==
[2024-08-28 10:04] LABS: BASO # 0.02 K/mm3 (0.02-0.10); EOS # 0.09 K/mm3 (0.04-0.40); EOS % 1.3 % (1.0-5.0); HEMATOCRIT 42.2 % (37.0-47.0); HEMOGLOBIN 13.3 g/dL (12.5-16.0); LYMPH# 2.32 K/mm3 (1.50-4.00); MEAN CELL VOLUME 93 fl (78-100); MEAN CORPUSCULAR HEMOGLOBIN 29 pg (27-31); MEAN CORPUSCULAR HGB CONC 32 g/dL (33-37); MEAN PLATELET VOLUME 8.9 fl (7.4-10.4); MONO # 0.57 K/mm3 (0.20-0.80); NEU # 4.06 K/mm3 (1.40-6.50); PLATELET COUNT 208 K/mm3 (130-400); RED BLOOD COUNT 4.52 M/mm3 (4.10-5.30); RED CELL DISTRIBUTION WIDTH 13.3 % (11.5-14.5); WHITE BLOOD COUNT 7.1 K/mm3 (4.8-10.8)
[2024-08-28 10:12] LABS: ALBUMIN 4.1 g/dL (3.4-4.8)
[2024-08-28 10:14] LABS: TOTAL PROTEIN 7.3 g/dL (6.2-8.1)
[2024-08-28 10:16] LABS: TOTAL BILIRUBIN 0.4 mg/dL (0.2-1.2)
[2024-08-28 10:21] LABS: MAGNESIUM 2.18 mg/dL (1.60-2.60)
[2024-08-28 10:35] LABS: URINE COLOR YELLOW (YELLOW)
[2024-08-28 10:36] LABS: URINE APPEARANCE CLEAR (CLEAR); URINE BILIRUBIN NEGATIVE (NEGATIVE); URINE BLOOD NEGATIVE (NEGATIVE); URINE GLUCOSE NEGATIVE (NEGATIVE); URINE KETONE NEGATIVE (NEGATIVE); URINE LEUKOCYTE ESTERASE NEGATIVE (NEGATIVE); URINE MUCUS PRESENT (NOT PRESENT); URINE NITRATE NEGATIVE (NEGATIVE); URINE PROTEIN(semi-quant) NEGATIVE (NEGATIVE); URINE WBC 0-1 /hpf (0-3)
== END ==
LOC: LAB 09:46
PROVIDERS: Internal Medicine
DX: Z12.11 Encounter for screening for malignant neoplasm of colon (principal); K90.9 Intestinal malabsorption, unspecified; E78.00 Pure hypercholesterolemia, unspecified; I10 Essential (primary) hypertension; M81.0 Age-related osteoporosis without current pathological fracture; R73.03 Prediabetes